=== PATIENT | male | born 1945 | race Caucasian/White ===

== ENCOUNTER → 2017-07-25 | Outpatient (CLI) | payer OTHER ==
[~2017-07-25] MED LIST: KEFLEX500 M1 PO; OMEPRAZOLE40 MG PO; TRAMADOL 50 MG50 MG PO; XARELTO15 MG PO; XARELTO20 MG PO
--- NOTE | 2017-08-02 08:26 | SLEEP ---
[address] [address] SLEEP STUDY REPORT Name: DALJIT LAGUERRE Room: [facility]#: [id number] Admission: 07/25/17 Attend Phys: Anisa Heredia MD Discharge: Date of : 47 Report #: [id number] THIS REPORT FOR: //name// CC: Anisa Heredia This study has been reviewed in its entirety by a board certified sleep specialist DATE OF SERVICE: 07/25/2017 HOME SLEEP STUDY REQUESTING PHYSICIAN: Dr. Anisa Heredia. A home sleep study was performed. The patient's [place] sleepiness scale was 6. Weight is 250 pounds with a BMI of 37. Total recording time was 334 minutes. During this recording time, there were no central apneas noted. There were 158 obstructive apneas. 88 hypopneas were noted. This resulted in apnea-hypopnea index of 44.2. Recording time was all while the patient was in the right lateral position. Lowest observed O2 saturation was 67%. 80 minutes were spent with O2 saturations of less than 88%. ASSESSMENT: 1. This home study revealed significant obstructive sleep apnea. Apnea-hypopnea index elevated at 44.2. It was also associated with desaturation. 2. Elevated body mass index. RECOMMENDATIONS: 1. Would consider return visit to the sleep lab for CPAP/BiPAP titration. Alternatively, could consider a home auto-titrate CPAP unit. 2. Achieving and maintaining ideal body weight. 3. The patient should also be cautioned in regards to driving and performing activities which require concentration until sleep complaints are addressed. <ELECTRONICALLY SIGNED> By: Keisha Gilbert MD 08/02/17 0826 1027 [id number] Gilbert MD /nt
== END ==
LOC: M.SLEEPLAB 07-06 20:00
DX: G47.30 Sleep apnea, unspecified (principal); K21.9 Gastro-esophageal reflux disease without esophagitis

== ENCOUNTER → 2017-09-06 | Outpatient (CLI) | payer OTHER ==
--- NOTE | 2017-09-09 09:28 | SLEEP ---
[address] [address] SLEEP STUDY REPORT Name: DALJIT LAGUERRE Room: [facility]#: [id number] Admission: 09/06/17 Attend Phys: Anisa Heredia MD Discharge: Date of : 47 Report #: [id number] THIS REPORT FOR: //name// CC: Anisa Heredia This study has been reviewed in its entirety by a board certified sleep specialist REFERRING PHYSICIAN: Anisa Heredia MD. TYPE OF STUDY: CPAP titration. INDICATION: Obstructive sleep apnea. METHOD: The following parameters were monitored: Frontal, central and occipital EEG; electro-oculogram; submentalis EMG; nasal and oral airflow; anterior tibialis EMG; body position and electrocardiogram. Additionally, thoracic and abdominal movements were recorded by inductance plethysmography. Oxygen saturation was monitored using the pulse oximeter. The tracing was scored using 30-second epochs. Hypopneas were scored per the [employer] definition using the 4% desaturation criteria. SLEEP SUMMARY: Total recording time 486.2 minutes. Total sleep time was 413 minutes. Sleep efficiency was 64.6%. Latency to sleep was 40.8 minutes. Latency to REM 125.3 minutes. SLEEP STAGING: Stage N1 14.2% of total sleep time, stage N2 69.6% of total sleep time, stage N3 none recorded. Stage REM 16.2%, total sleep time. RESPIRATORY DATA: This was a CPAP titration study where the patient was titrated on a pressure 7, 9, 10, 11 and 12 cm of water. At 12 cm of water, the patient was captured for a total of 107.5 minutes of sleep, 13 minutes of those were during supine REM sleep. The apnea-hypopnea index at this level of pressure was 0, and O2 saturation remained 90% and above. CARDIAC DATA: The average heart rate during the study was 61.4 minutes. No arrhythmias were recorded. PERIODIC LIMB MOVEMENTS: PLMS index was elevated at 15.3. IMPRESSION RECOMMENDATIONS: 1. A trial of CPAP therapy at a pressure of 12 cm of water with close clinical followup and data download. 2. Elevated periodic limb movements of [place] [id number] SLEEP STUDY REPORT Name: DALJIT LAGUERRE Room: [facility]#: [id number] Admission: 09/06/17 Attend Phys: Anisa Heredia MD Discharge: Date of : 47 Report #: [id number] 3. Avoid alcohol, sedatives, hypnotics close to bedtime. 4. Recommend maintaining ideal body weight. <ELECTRONICALLY SIGNED> By: Gertrude Gonzalez MD 09/09/17 0928 1231 [id number] Gonzalez MD /nt
== END ==
LOC: M.SLEEPLAB 19:51
DX: G47.33 Obstructive sleep apnea (adult) (pediatric) (principal); R09.02 Hypoxemia

== ENCOUNTER 2017-12-18 00:11 | Inpatient (IN) | payer OTHER ==
[~2017-12-18] VITALS: Ht 175.3 cm; Wt 119.7 kg
[2017-12-18] VITALS (20 sets, daily range): BP systolic 127–178; BP diastolic 69–91
[~2017-12-18 00:11] MED LIST changes: -KEFLEX500 M1 PO; -XARELTO15 MG PO; -XARELTO20 MG PO
[2017-12-18 00:58] LABS: HEMATOCRIT 53.9 % (42.0-52.0); HEMOGLOBIN 17.9 gm/dL (14.0-18.0); MCH 32.1 pg (26.0-34.0); MCHC 33.3 g/dL (28.0-37.0); MCV 96.5 fL (80.0-100.0); MPV 7.4 fl. (7.2-11.1); NUCLEATED RBCS 0 /100WBC; PLATELET COUNT* 314 thou/uL (150-400); RBC 5.58 mil/uL (4.50-6.00); RDW-CV 13.8 % (10.5-14.5); WBC 14.6 thou/uL (4.0-11.0)
[2017-12-18 01:02] LABS: ANION GAP 9 mmol/L (7-16); BUN 15 mg/dL (7-18); CALCIUM 8.5 mg/dL (8.5-10.1); CHLORIDE 98 mmol/L (98-107); CO2 27 mmol/L (21-32); CREATININE 1.2 mg/dL (0.6-1.3); GLUCOSE 117 mg/dL (70-99); POTASSIUM 3.6 mmol/L (3.5-5.1); SODIUM 134 mmol/L (136-145)
[2017-12-18 01:08] LABS: URINE BILIRUBIN NEGATIVE (Negative); URINE BLOOD NEGATIVE (Negative); URINE CLARITY CLEAR; URINE COLOR YELLOW; URINE GLUCOSE-RANDOM NEGATIVE (Negative); URINE KETONES 1+ (Negative); URINE LEUKOCYTES-REFLEX NEGATIVE (Negative); URINE NITRITE-REFLEX NEGATIVE (Negative); URINE PROTEIN TRACE (Negative); URINE SPECIFIC GRAVITY 1.015 (1.005-1.030); URINE UROBILINOGEN >= 8.0 E.U./dl (0.2-1.0)
[2017-12-18 01:08] LABS: ALBUMIN 3.5 g/dL (3.4-5.0); ALKALINE PHOSPHATASE 70 U/L (46-116); LIPASE 289 U/L (73-393); SGOT 22 U/L (15-37); SGPT 63 U/L (30-65); TOTAL BILIRUBIN 1.2 mg/dL (<0.1-1.0); TOTAL PROTEIN 8.4 g/dL (6.4-8.2); TROPONIN-I LEVEL <0.06 ng/mL (<0.06)
[2017-12-18 02:19] LABS: ABSOLUTE MONOCYTES 0.6 thou/uL (0.0-1.2)
[2017-12-18 02:20] LABS: PLATELET ESTIMATE ADEQUATE
--- NOTE | 2017-12-18 17:05 | EKG ---
[place] [address] ELECTROCARDIOGRAM REPORT Name: DALJIT LAGUERRE Room: [address] IN M.R.#: [id number] Admission: 12/18/17 Attend Phys: Juan Schmidt, Discharge: Date of : 47 Report #: [id number] THIS REPORT FOR: //name// [facility] ED Test Date: 2017-12-18 Test Time: 00:18:03 Pat Name: DALJIT LAGUERRE Department: Room: [facility] Gender: M Strategic Planning Consultant: LEEANNA : 1945 Requested By: Markos Flores Order Number: [id number] MD: David March Measurements Intervals Rocky Rate: 114 P: 19 FL: 196 QRS: 3 QRSD: 91 T: 9 QT: 337 QTc: 465 Interpretive Statements Sinus tachycardia Left atrial enlargement Inferior infarct, old No previous ECG available for comparison Electronically Signed On 12-18-2017 17:05:41 CDT by David March [email or web address] <ELECTRONICALLY SIGNED> By: David March MD, [facility] 12/18/17 1705 D: 0917 David March MD, FACC /EPI
--- NOTE | 2017-12-18 20:11 | NUR ---
PATIENT ALERT AND ORIENTED CO FLANK PAIN AT TIMES TAKING PO WELL REMAINS ON O2 AT 6 LITERS WITH SAO2 OF 90.
[2017-12-19] VITALS (9 sets, daily range): BP systolic 114–165; BP diastolic 66–87
[2017-12-19 03:58] LABS: ABSOLUTE BASOPHILS 0.1 thou/uL (0.0-0.2); ABSOLUTE LYMPHOCYTES 1.1 thou/uL (0.8-5.3); ABSOLUTE NEUTROPHILS 9.7 thou/uL (1.6-8.1); BASOPHILS 1.2 %; EOSINOPHILS 0.2 %; HEMATOCRIT 48.1 % (42.0-52.0); LYMPHOCYTES 9.4 %; MCH 32.1 pg (26.0-34.0); MCHC 32.9 g/dL (28.0-37.0); MCV 97.8 fL (80.0-100.0); MONOCYTES 8.5 %; MPV 7.2 fl. (7.2-11.1); NUCLEATED RBCS 0 /100WBC; POLYS 80.7 %; RBC 4.91 mil/uL (4.50-6.00); RDW-CV 13.9 % (10.5-14.5)
--- NOTE | 2017-12-19 04:27 | NUR ---
PT RESTING COMFORTABLE AT THIS TIME. PT TOLERATING CPAP BUT WOULD LIKE TO TAKE OFF SOON AND BE PUT BACK ON NC SATS 94% NOW. PT SLIGHTLY FEBRILE. PT REQUIRED A DOSE OF PAIN MEDICATION SO FAR. AM LABS TO BE REVIEWED. PT SR ON MONITOR.
[2017-12-19 04:30] LABS: HEMOGLOBIN 15.8 gm/dL (14.0-18.0)
[2017-12-19 04:34] LABS: PLATELET COUNT* 239 thou/uL (150-400)
[2017-12-19 04:36] LABS: POTASSIUM 4.4 mmol/L (3.5-5.1)
--- NOTE | 2017-12-19 09:14 | CON ---
[address] [address] CONSULTATION Name: DALJIT LAGUERRE Room: [address] IN .R.#: [id number] Admission: 12/18/17 Attend Phys: Juan Schmidt, Discharge: Date of : 47 Report #: [id number] THIS REPORT FOR: //name// CC: Anisaidania Heredia Juan Schmidt DATE OF SERVICE: 12/18/2017 REFERRING PHYSICIAN: Juan Schmidt MD CHIEF COMPLAINT: Shortness of breath. HISTORY OF PRESENT ILLNESS: The patient is a 72-year-old male who had been having shortness of breath for about a week or so. Normally, he is short of breath anyway, he started noticing it to be worse about a week ago, was not until yesterday that it became more of a problem, more dyspneic. The patient did not have any other associated symptoms. He denies chest pain, cough, phlegm production, fever, chills, nausea, vomiting. PAST MEDICAL HISTORY: Significant for obstructive sleep apnea. Also obesity. ALLERGIES: SULFA DRUGS. REVIEW OF SYSTEMS: System review negative other than what is outlined above. FAMILY HISTORY: Noncontributory for his age. MEDICATIONS: Zithromax, Rocephin, OxyContin, fentanyl, Protonix, and Lovenox. PHYSICAL EXAMINATION: VITAL SIGNS: Blood pressure 138/76, respiratory rate 20, pulse rate 74 and regular, temperature 98.6, weight 263 pounds. GENERAL APPEARANCE: Awake, alert, oriented. HEENT: Head atraumatic. EYES: Pupils are round, equal, reactive. Sclerae and conjunctivae are clear. NECK: Bulky neck, no adenopathy. CHEST: Diminished breath sounds. No wheezes. CARDIOVASCULAR: Regular rhythm. EXTREMITIES: Negative for edema. No evidence of clubbing. ABDOMEN: Obese without organomegaly or tenderness. SKIN: Warm and dry without rash effect. EXTREMITIES: Lower extremities appear to have some excessive hyperpigmentation compared to the rest of his lower extremities, mostly from the mid calf to the ankle. NEUROLOGIC: The patient moves all 4 extremities[place] [address] CONSULTATION Name: DALJIT LAGUERRE Eduardo Room: [address] [place] [facility]#: [id number] Admission: 12/18/17 Attend Phys: Juan Schmidt, Discharge: Date of : 47 Report #: [id number] ASSESSMENT: 1. Bilateral pulmonary emboli. 2. Obstructive sleep apnea. PLAN: Aspiration precautions. Continue anticoagulation therapy. Okay to transition to oral medication for his anticoagulation effect. The patient will use his own CPAP at bedtime. Probably could move out of the ICU tomorrow if no new developments occur. If venous Dopplers have not been obtained, we will go ahead and obtain that. Also, we will check an echocardiogram to make sure we are not dealing with significant right heart strain. <ELECTRONICALLY SIGNED> By: Robbie Hoskins MD 12/19/17 0914 1103 1502Albin Hoskins MD /nt
--- NOTE | 2017-12-19 10:45 | NUR ---
SPOKE WITH PT. HE LIVES WITH HIS , HAS BEEN ACTIVE AND INDEP. HE A CPAP AT HOME, NO OTHER DME. PT DENIES ANY DISCHARGE NEEDS. PT USES [facility] [address] FOR HIS PHARMACY.
--- NOTE | 2017-12-19 16:34 | 2DMMODE ---
[place] [address] 2 D/M-MODE ECHOCARDIOGRAM Name: DALJIT LAGUERRE Room: [address] IN [facility]#: [id number] Admission: 12/18/17 Attend Phys: Juan Garcia Discharge: Date of : 47 Date of Service: 12/19/17 1633 Report #: [id number] THIS REPORT FOR: //name// APPROVED REPORT Study performed: 12/19/2017 10:27:13 EXAM: Comprehensive 2D, Doppler, and color-flow Echocardiogram Patient Location: In-Patient Room #: 003 Status: routine BSA: 2.32 HR: 100 bpm BP: 164/75 mmHg Rhythm: NSR Other Information Study Quality: Good Indications Pulmonary Embolism 2D Dimensions IVSd: 12.24 (7-11mm) LVOT Diam: 22.55 (18-24mm) LVDd: 56.90 mm PWd: 9.42 (7-11mm) Ascending Ao: 36.24 (22-36mm) LVDs: 30.49 (25-40mm) Aortic Root: 39.89 mm Volumes Left Atrial Volume (Systole) LA ESV Index: 25.70 mL/m2 Aortic Valve AoV Peak Tee.: 1.52 m/s AO Peak Gr.: 9.19 mmHg LVOT Max P.14 mmHg AO Mean Gr.: 4.95 mmHg LVOT Mean P.17 mmHg LVOT Max V: 1.24 m/s AO V2 VTI: 24.82 cm LVOT Mean V: 0.82 m/s PEARL (VTI): 3.24 cm2 LVOT V1 VTI: 20.15 cm AI [place]: 3.02 m/s2 AI PHT: 431.92 ms Mitral Valve E/A Ratio: 1.05 [place] [address] 2 D/M-MODE ECHOCARDIOGRAM Name: DALJIT LAGUERRE Room: [address] IN [facility]#: [id number] Admission: 12/18/17 Attend Phys: Juan Garcia Discharge: Date of : 47 Date of Service: 12/19/17 1633 Report #: [id number] MV Decel. Time: 168.66 ms MV E Max Tee.: 0.79 m/s MV PHT: 48.91 ms MVA (PHT): 4.50 cm2 TDI E/Lateral E': 4.39 E/Medial E': 6.58 Medial E' Tee.: 0.12 m/s Lateral E' Tee.: 0.18 m/s Pulmonary Valve PV Peak Tee.: 1.02 m/s PV Peak Gr.: 4.17 mmHg Tricuspid Valve RAP Estimate: 5.00 mmHg TR Peak Gr.: 31.34 mmHg RVSP: 36.34 mmHg PA Pressure: 36.34 mmHg Left Ventricle The left ventricle is normal size. There is normal LV segmental wall motion. There is normal left ventricular wall thickness. Left ventricular systolic function is normal. The left ventricular ejection fraction is within the normal range. LVEF is 60-65%. The left ventricular diastolic function is normal. Right Ventricle The right ventricle is normal size. The right ventricular systolic function is normal. Atria The left atrium size is normal. The right atrium size is normal. Aortic Valve The aortic valve is normal in structure. Mild aortic regurgitation. There is no aortic valvular stenosis. Mitral Valve The mitral valve is normal in structure. Trace mitral regurgitation. No evidence of mitral valve stenosis. Tricuspid Valve The tricuspid valve is normal in structure. Mild tricuspid regurgitation. estimate pa pressure 42 [place] [address] 2 D/M-MODE ECHOCARDIOGRAM Name: LAGUERREENZOE Eduardo Room: [address]#: [id number] Admission: 12/18/17 Attend Phys: Juan Garcia Discharge: Date of : 47 Date of Service: 12/19/17 1633 Report #: [id number] Pulmonic valve is not well visualized. There is no pulmonic valvular regurgitation. Great Vessels The aortic root is normal in size. IVC is normal in size and collapses with >50% inspiration Pericardium There is no pericardial effusion. <Conclusion> LVEF is 60-65%. Mild aortic regurgitation. <ELECTRONICALLY SIGNED> By: Martin García MD, FACC 12/19/17 1633 1633 1633 Martin García MD, FACC /INF
--- NOTE | 2017-12-19 17:48 | NUR ---
PATIENT TRANSFERRED TO ROOM 313 VIA WHEELCHAIR AT 1630 FROM ICU. AGREE WITH PREVIOUS ASSESSMENT. PATIENT DENIES PAIN, O2 IN PLACE AT 5L/NC. PATIENT WITH LABORED BREATHING AT TIMES. PATIENT PLACED ON BUSINESS EXCELLENCE LEADER AND TRACING NSR TO ST. PATIENT ORIENTED TO NEW ROOM AND ENVIRONMENT. FAMILY AT BEDSIDE. CALL LIGHT WITHIN REACH. HOURLY ROUNDING COMPLETED. WILL CONTINUE WITH PLAN OF CARE.
[2017-12-20 04:00] VITALS: BP 129/60
--- NOTE | 2017-12-20 05:46 | NUR ---
PT SLEPT FAIRLY WELL UP IN RECLINER OVERNIGHT. O2 4.5L. CANSA. NO LABS THIS MORNING. LFA IVF INFUSING PER PUMP, LHAND SL. TEMP MAX 98.8 OVERNIGHT. RECEIVING IV AND PO ABX ABX ORDERED. ABLE TO USE CALL LITE AND MAKE NEEDS KNOWN. UP AD MAGGI IN ROOM. AOX4, PLEASANT. RECEIVING XARELTO ORDERED. RT TX.
[2017-12-20 08:50] VITALS: BP 152/76
[2017-12-20 12:00] VITALS: BP 142/50
[2017-12-20 16:00] VITALS: BP 130/54
--- NOTE | 2017-12-20 16:40 | NUR ---
SW sent initial referral for oxygen at home to [facility] with [employer] and SW to send testing results and order if needed and pt qualifies. SW to check on coverage of Xarelto when script is complete with pt pharmacy [facility] in [place].
--- NOTE | 2017-12-20 17:32 | NUR ---
PATIENT HAS BEEN A/O X 4 THIS SHIFT. HAS DENIED PAIN OR INCREASED SHORTNESS OF AIR. PATIENT CONTINUES ON O2 AT 4L/NC. CONTINUES ON FIRST ASSISTANT TRACING NSR/ST WITH ACTIVITY. PATIENT'S IV SALINE LOCKED. PATIENT WITH LOOSE COUGH AT TIMES. CONTINUES ON XARELTO, EDUCATION PROVIDED REGARDING MEDICINE. PATINET AMBULATED TO SHOWER ROOM AND BACK TO ROOM THIS SHIFT WITH PORTABLE O2. PATIENT'S AT BEDSIDE. HOURLY ROUNDING COMPLETED. TENTATIVE DC FOR TUESDAY. CALL LIGHT WITHIN REACH. WILL CONTINUE WITH PLAN OF CARE.
[2017-12-20 20:20] VITALS: BP 152/80
[2017-12-21 00:23] VITALS: BP 138/77
[2017-12-21 04:13] VITALS: BP 146/65
--- NOTE | 2017-12-21 05:56 | NUR ---
PT SLEPT WELL OVERNIGHT WITHOUT COMPLAINTS. O2 4L, WEARING CPAP WHILE ASLEEP. UP IN RECLINER TO SLEEP. LFA SL, ABX GIVEN ORDERED. PT UP AD MAGGI IN ROOM WITH STEADY GAIT, CANAS. NO LABS THIS MORNING. ABLE TO USE CALL LITE AND MAKE NEEDS KNOWN.TO HAVE O2 REST AND EXERCISE SAT TODAY. PT HOPEFUL FOR DC SOON.
[2017-12-21 08:00] VITALS: BP 127/70
[2017-12-21] MEDS ORDERED: XARELTO15 MG PO (10:41)
[2017-12-21] MEDS ORDERED: XARELTO20 MG PO (10:42)
[2017-12-21 12:06] VITALS: BP 127/70
[2017-12-21] MEDS ORDERED: KEFLEX500 M1 PO (12:06)
[2017-12-21 12:12] VITALS: BP 127/70
--- NOTE | 2017-12-21 13:20 | NUR ---
PATIENT AND SPOUSE GIVEN DISCHARGE INSTRUCTIONS AT THIS TIME. PATIENT AND SPOUSE VERBALIZED UNDERSTANDING IN REGARDS TO HOME O2, NEW MEDICATIONS, S/S TO NOTIFY PHYSICIAN AND FOLLOW UP APPOINTMENTS. PATIENT'S IV REMOVED. PATIENT DISCHARGED TO HOME WITH ALL BELONGINGS AND HOME O2. ESCORTED OFF NURSING UNIT VIA WHEELCHAIR WITH NURSING STAFF.
== END 2017-12-21 13:20 | disposition home or self-care (01) | DRG 177 ==
LOC: M.ERS 00:11 → M.ICU 01:40 → M.TBA-ER 01:40 → M.2W 03:07 → M.ICU 04:01 → M.3W 12-19 16:37
PROVIDERS: Emergency Medicine Emergency Medical Services; Internal Medicine; ADMIT Family Medicine
PROC: 5A09357 Assistance with Respiratory Ventilation, Less than 24 Consecutive Hours, Continuous Positive Airway Pressure (ICD-10-PCS; principal; 2017-12-19)
DX: J69.0 Pneumonitis due to inhalation of food and vomit (principal); I26.99 Other pulmonary embolism without acute cor pulmonale; J96.21 Acute and chronic respiratory failure with hypoxia; K21.9 Gastro-esophageal reflux disease without esophagitis; G47.33 Obstructive sleep apnea (adult) (pediatric); E66.9 Obesity, unspecified; Z96.651 Presence of right artificial knee joint; Z82.49 Family history of ischemic heart disease and other diseases of the circulatory system; Z87.891 Personal history of nicotine dependence; Z88.2 Allergy status to sulfonamides; Z68.39 Body mass index [BMI] 39.0-39.9, adult; Z79.899 Other long term (current) drug therapy

== ENCOUNTER → 2018-01-13 | Outpatient (CLI) | payer OTHER ==
[~2018-01-13] MED LIST changes: +KEFLEX500 M1 PO; +XARELTO15 MG PO; +XARELTO20 MG PO
== END ==
LOC: M.RAD 13:13
DX: I51.7 Cardiomegaly (principal); K44.9 Diaphragmatic hernia without obstruction or gangrene; J90 Pleural effusion, not elsewhere classified; J98.11 Atelectasis; J18.8 Other pneumonia, unspecified organism

== ENCOUNTER → 2018-01-23 | Outpatient (CLI) | payer OTHER | LOC: M.RAD 13:11 | DX: J90 Pleural effusion, not elsewhere classified (principal); I51.7 Cardiomegaly; K44.9 Diaphragmatic hernia without obstruction or gangrene; R91.8 Other nonspecific abnormal finding of lung field ==

== ENCOUNTER → 2018-12-19 | Outpatient (CLI) | payer OTHER ==
--- NOTE | 2018-12-20 23:08 | SLEEP ---
[address] [address] SLEEP STUDY REPORT Name: DALJIT LAGUERRE Room: [facility]#: [id number] Admission: 12/19/18 Attend Phys: Edy Duong MD Discharge: Date of : 47 Report #: [id number] THIS REPORT FOR: //name// CC: Edy Heredia This study has been reviewed in its entirety by a board certified sleep specialist DATE OF SERVICE: 12/19/2018 SLEEP STUDY REFERRING PHYSICIAN: Edy Duong MD The patient is 73 years old who weighs 250 pounds with a BMI of 36.9. The patient has a history of sleep apnea and uses CPAP. He was referred back for another titration study performed at [facility]. During the night study, the patient spent 375 minutes in bed and slept for 312 minutes with a sleep efficiency of 83%. Sleep latency was 22 minutes with a REM latency of 96 minutes. Overall, sleep architecture showed a normal stage 1 and stage 2 sleep, normal slow wave and normal REM sleep. EKG monitoring revealed normal sinus rhythm. Average heart rate 75 beats per minute. No sustained arrhythmias observed. PLMS were seen at an index of 13 per hour and 3 per hour caused EEG arousals. The patient was started on CPAP at 5 cm water and titrated up to 12 cm water. The patient was then switched to BiPAP by the respiratory therapist for comfort. At the BiPAP pressure of 14/10, the patient slept for 160 minutes including 38 minutes of supine REM sleep. The patient's AHI was reduced to 0 per hour and oxygen saturation remained above 90%. The patient felt better with the BiPAP. IMPRESSION: 1. Sleep apnea diagnosed previously. 2. No clinically significant periodic limb movements. RECOMMENDATIONS: 1. BiPAP at 14/10 completely eliminated the patient's sleep apnea and should be used on a nightly basis. 2. Follow up in 4-6 weeks to assess compliance with BiPAP and to document clinical improvement. 3. Weight [place] [address] SLEEP STUDY REPORT Name: DALJIT LAGUERRE Room: [facility]#: [id number] Admission: 12/19/18 Attend Phys: Edy Duong MD Discharge: Date of : 47 Report #: [id number] 4. Avoid COMMISSARY AGENT depressants. 5. Cautioned regarding driving until symptoms of sleep apnea resolve with the use of BiPAP. <ELECTRONICALLY SIGNED> By: Antonio Fu MD 12/20/18 2308 1748 Sergio Fu MD /nt
== END ==
LOC: M.SLEEPLAB 11-21 10:00
DX: G47.33 Obstructive sleep apnea (adult) (pediatric) (principal)

== ENCOUNTER → 2021-05-04 | Outpatient (CLI) | payer OTHER | LOC: M.ULTRA 09:23 | PROVIDERS: ATTEND Family Medicine | DX: K80.20 Calculus of gallbladder without cholecystitis without obstruction (principal); K76.0 Fatty (change of) liver, not elsewhere classified; K76.89 Other specified diseases of liver; R16.0 Hepatomegaly, not elsewhere classified; R79.89 Other specified abnormal findings of blood chemistry ==